=== PATIENT | male | born 1995 | race Caucasian/White ===

== ENCOUNTER 2017-07-02 10:15 | Emergency (ER) | payer SELFPAY ==
[2017-07-02 10:36] VITALS: BP 111/73
--- NOTE | 2017-07-02 11:47 | RAD ---
INDICATION: Puncture wound first metacarpal COMPARISON: None TECHNIQUE: AP, lateral, and oblique views were obtained. FINDINGS: Evaluation fingers is limited because the fingers are in flexion. No fracture or foreign body is seen.. IMPRESSION: NO FRACTURE OR FOREIGN BODY
--- NOTE | 2017-07-02 13:40 | UC ---
Juan Bolaños Angela, scribed for John Alvarez MD on 07/02/17 at 1120 . Skin Complaint HPI - HPI Summary HPI Summary: This pt is a 21 y/o right-hand dominant male presenting to [facility] c/o puncture wound on left index finger from nail gun 1 hour [employer]. 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 Pt reports at first it was painful, pain has subsided a little now. Pt notes his tetanus is UTD. - History of Current Complaint Chief Complaint: UCSkin Time Seen by Provider: 07/02/17 11:06 Stated Complaint: PUNCTURE WOUND Hx Obtained From: Patient Onset/Duration: Still Present Skin Exposure Onset/Duration: Hours Ago Timing: Constant Location: Discrete - Left index finger Character: Pain, Redness Aggravating: Nothing Alleviating: Nothing Associated Signs & Symptoms: Positive: Tenderness. Negative: Diaphoresis, Weakness, Fever, Chills, Drainage Review of Systems Constitutional: Negative Skin: Other - wound on left index finger. 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) Other Endocrine History: DENIES: Diabetes Other Cardiovascular History: DENIES: HTN - Surgical History Surgical History: Yes Surgery Procedure, Year, and Place: skin removal on hands - Social History Alcohol Use: None Substance Use Type: None Smoking Status (MU): Current Some Day Smoker Physical Exam Triage Information Reviewed: Yes Vital Signs: Initial Vital Signs Temp 99 F 07/02/17 10:32 Pulse 56 07/02/17 10:32 Resp 16 07/02/17 10:32 BP 111/73 07/02/17 10:32 Pulse Ox 100 07/02/17 10:32 Vital Signs Reviewed: Yes - Additional Comments The patient is well-nourished in no acute distress and in no acute pain. The skin is warm and dry and skin color reflects adequate perfusion. HEENT: The head is normocephalic and atraumatic. The pupils are equal and reactive. The conjunctivae are clear and without drainage. Neck is supple with full range of motion and non-tender. There are no carotid bruits. There is no neck vein distension. Respiratory: Chest is non-tender. Lungs are clear to auscultation and breath sounds are symmetrical and equal. Cardiovascular: Hear is regular rate and rhythm. There is no murmur or rub auscultated. Abdomen: The abdomen is soft and non-tender. There are normal bowel sounds heard in all four quadrants and there is no organomegaly palpated. Musculoskeletal: There is no back pain noted. Extremities are non-tender with full range of motion. LUE: there is a puncture wound on left index finger on the proximal phalanx. There is a puncture wound with an exit wound on the palmar aspect of finger. There is full range of motion with some tenderness. There is good capillary refill. Neurological: Patient is alert and oriented to person, place and time. The patient has symmetrical motor strength in all four extremities. Psychiatric: The patient has an appropriate affect and does not exhibit any anxiety or depression. Diagnostics - Radiology XR of left hand Xray Interpretation: No Acute Changes - IMPRESSION: No fracture or foreign body. Radiology Interpretation Completed By: Radiologist Course/Dx - Differential Diagnoses - Skin Complaint Differential Diagnoses: Other - puncture wound, open fracture, tendon injury - Diagnoses Provider Diagnoses: Puncture wound. Discharge - Discharge Plan Condition: Stable Disposition: HOME Prescriptions: Cephalexin CAP* [Keflex CAP*] 500 mg PO QID #28 cap Patient Education Materials: Puncture Wound (ED) Referrals: No Primary Care Phys,NOPCP [Primary Care Provider] - Additional Instructions: Take the antibiotics as prescribed. Please clean your wound twice a day and wear band-aids while at work. Please return to the ED for any worsening symptoms and infections. The documentation as recorded by the Juan glover Angela accurately reflects the service I personally performed and the decisions made by , John Alvarez MD.
== END 2017-07-02 12:08 | disposition home or self-care (01) ==
LOC: UCEAST 10:15
DX: S61.231A Puncture wound without foreign body of left index finger without damage to nail, initial encounter (principal); W29.4XXA Contact with nail gun, initial encounter; Y93.H3 Activity, building and construction; Y92.9 Unspecified place or not applicable; Y99.0 Civilian activity done for income or pay; Q79.8 Other congenital malformations of musculoskeletal system; Z72.0 Tobacco use
CPT/HCPCS: 99202; G0463